=== PATIENT | female | born 1965 | race Caucasian/White ===

== ENCOUNTER 2019-04-13 13:34 | Emergency (ER) | payer OTHER ==
[~2019-04-13] VITALS: Ht 165.1 cm; Wt 56.7 kg
--- NOTE | 2019-04-13 13:37 | NUR ---
PT BIBA to bed 09.
[2019-04-13 13:40] VITALS: BP 99/89
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
[2019-04-13] MEDS: KETOROLAC 60 MG/2 ML VIAL IM ONE (15:01)
--- NOTE | 2019-04-13 15:05 | NUR ---
PT COME BACK FROM [facility] ASSISTED BY [employer]. NEW ICE PACKS PROVIDED.
[2019-04-13 16:29] VITALS: BP 153/98
--- NOTE | 2019-04-13 16:29 | NUR ---
Patient discharged with v/s stable. Written and verbal after care instructions given and explained. Patient alert, oriented and verbalized understanding of instructions. Wheel Chair Assisted with to lobby to wait for friend to pick her up. All questions addressed prior to discharge. ID band removed. Patient advised to follow up with PMD. Rx of Addis and Naprosyn given. Patient educated on indication of medication including possible reaction and side effects. Opportunity to ask questions provided and answered.
== END 2019-04-13 16:29 | disposition home or self-care (01) ==
LOC: MED 13:34
DX: S13.9XXA Sprain of joints and ligaments of unspecified parts of neck, initial encounter (principal); S89.91XA Unspecified injury of right lower leg, initial encounter; S89.92XA Unspecified injury of left lower leg, initial encounter; T74.61XA Adult forced labor exploitation, confirmed, initial encounter; M79.601 Pain in right arm; G81.90 Hemiplegia, unspecified affecting unspecified side; Z88.5 Allergy status to narcotic agent; Z98.890 Other specified postprocedural states; Y04.2XXA Assault by strike against or bumped into by another person, initial encounter; Y93.89 Activity, other specified; Y92.810 Car as the place of occurrence of the external cause; Y99.8 Other external cause status
CPT/HCPCS: 29505; 72040; 73562; 96372; 99283; J1885